=== PATIENT | male | born 1945 | race Caucasian/White ===

== ENCOUNTER 2023-08-27 17:55 | Emergency (ER) | payer MEDICARE ==
[~2023-08-27] VITALS: Ht 180.3 cm; Wt 99.1 kg
[2023-08-27 18:42] LABS: BASOPHILS % (AUTO) 1.2 % (0.0-2.0); EOSINOPHILS % (AUTO) 2.7 % (1.0-6.0); HEMATOCRIT 36.6 % (41-53); HEMOGLOBIN 12.4 g/dL (13.5-17.5); LYMPHOCYTES # (AUTO) 2.8 K/uL (1.0-4.8); LYMPHOCYTES % (AUTO) 30.5 % (22.0-44.0); MEAN CORPUSCULAR HEMOGLOBIN 31.2 pg (26.0-34.0); MEAN CORPUSCULAR VOLUME 92 fL (80-100); MONOCYTES # (AUTO) 0.7 K/uL (0.1-1.0); NEUTROPHILS # (AUTO) 5.3 K/uL (1.8-7.7); NEUTROPHILS % (AUTO) 57.6 % (40.0-70.0); PLATELET COUNT (AUTO) 295 K/uL (150-450); RED BLOOD CELL COUNT(AUTO) 3.98 MIL/uL (4.50-5.90); RED CELL DISTRIBUTION WIDTH 14.9 % (11.5-14.5); WHITE BLOOD COUNT (AUTO) 9.1 K/uL (4.5-11.0)
[2023-08-27 19:00] LABS: CALCIUM, TOTAL 10.1 mg/dL (8.8-10.5); CREATININE 1.95 mg/dL (0.60-1.30); POTASSIUM 3.9 mmol/L (3.5-5.1)
[2023-08-27 19:06] LABS: ALBUMIN 3.3 g/dL (3.4-5.0); BILIRUBIN,TOTAL 1.2 mg/dL (0.1-1.0); TOTAL PROTEIN, SERUM 6.5 g/dL (6.4-8.2)
[2023-08-27 20:27] VITALS: BP 120/52; PULSE 66; RESP 16; TEMP 97.7
== END 2023-08-27 23:01 | disposition home or self-care (01) ==
LOC: EMS 17:55
DX: E11.65 Type 2 diabetes mellitus with hyperglycemia (principal)
CPT/HCPCS: 80053; 82962; 85025; 99283

== ENCOUNTER 2023-08-28 16:17 | Inpatient (IN) | payer MEDICARE ==
[~2023-08-28] VITALS: Ht 180.3 cm; Wt 114.6 kg
[2023-08-28] MEDS: SODIUM CHLORIDE 0.9% 1,000 ML IV ONE (16:56)
[2023-08-28 17:04] LABS: BASOPHILS % (AUTO) 1.1 % (0.0-2.0); EOSINOPHILS % (AUTO) 2.6 % (1.0-6.0); HEMATOCRIT 36.3 % (41-53); HEMOGLOBIN 12.2 g/dL (13.5-17.5); LYMPHOCYTES # (AUTO) 2.7 K/uL (1.0-4.8); LYMPHOCYTES % (AUTO) 26.4 % (22.0-44.0); MEAN CORPUSCULAR HEMOGLOBIN 30.7 pg (26.0-34.0); MEAN CORPUSCULAR HGB CONC 33.5 G/dL (31.0-37.0); MEAN CORPUSCULAR VOLUME 92 fL (80-100); MONOCYTES # (AUTO) 0.7 K/uL (0.1-1.0); MONOCYTES % (AUTO) 7.2 % (2.0-9.0); NEUTROPHILS # (AUTO) 6.3 K/uL (1.8-7.7); NEUTROPHILS % (AUTO) 62.7 % (40.0-70.0); PLATELET COUNT (AUTO) 322 K/uL (150-450); RED BLOOD CELL COUNT(AUTO) 3.96 MIL/uL (4.50-5.90); RED CELL DISTRIBUTION WIDTH 14.8 % (11.5-14.5); WHITE BLOOD COUNT (AUTO) 10.1 K/uL (4.5-11.0)
[2023-08-28 17:14] LABS: ANION GAP 9 mmol/L (8-16); CALCIUM, TOTAL 9.7 mg/dL (8.8-10.5); CARBON DIOXIDE 32 mmol/L (22-29); CHLORIDE 94 mmol/L (98-107); CREATININE 1.95 mg/dL (0.60-1.30); GLOMERULAR FILTR. RATE CALC 34 mL/min (>60); GLUCOSE,RANDOM 275 mg/dL (70-110); POTASSIUM 3.7 mmol/L (3.5-5.1); SODIUM SERUM 135 mmol/L (136-145); UREA NITROGEN, BLOOD 41 mg/dL (7-18)
[2023-08-28 17:20] LABS: ACETONE,BLOOD NEGATIVE (NEGATIVE); LACTIC ACID 1.9 mmol/L (0.4-2.0); TROPONIN I-HIGH SENSITIVITY 30 ng/L (<76)
[2023-08-28 17:21] LABS: B-TYPE NATRIURETIC PEPTIDE 76 pg/mL (0-100)
[2023-08-28 17:28] LABS: ALANINE AMINOTRANSFERASE 47 U/L (12-78); ALBUMIN 3.3 g/dL (3.4-5.0); ALKALINE PHOSPHATASE 110 U/L (46-116); ASPARTATE AMINOTRANSFERASE 36 U/L (15-37); BILIRUBIN,TOTAL 1.5 mg/dL (0.1-1.0); FREE T4 (FREE THYROXINE) 0.39 ng/dL (0.76-1.46); T4 (THYROXINE) 6.1 mcg/dL (4.7-13.3); THYROID STIMULATING HORMONE 83.56 uIU/mL (0.36-3.74); TOTAL PROTEIN, SERUM 6.5 g/dL (6.4-8.2)
[2023-08-28] MEDS ORDERED: 0.9% SODIUM CHLORIDE 10 ML SYRINGE IVP PRN (18:00)
[2023-08-28] MEDS ORDERED: ACETAMINOPHEN 325 MG TABLET PO PRN ×2 (18:00→22:00)
[2023-08-28] MEDS ORDERED: ONDANSETRON HCL 4 MG/2 ML VIAL IVP PRN ×2 (18:00→22:00)
[2023-08-28 18:06] LABS: COVID AG,FIA SOURCE NASAL SWAB
[2023-08-28 18:22] LABS: SARS-COV2 (COVID) ANTIGEN,FIA Negative (Negative)
[2023-08-28 20:31] LABS: GLUCOMETER DEV NAME(LOC) ERT.5; GLUCOSE,POINT OF CARE 318 MG/DL (70-110)
[2023-08-28 20:58] LABS: APPEARANCE,URINE CLEAR (CLEAR); BILIRUBIN,URINE NEGATIVE (NEGATIVE); COLOR,URINE LIGHT YELLOW (YELLOW); GLUCOSE, URINE (UA) >=1000 mg/dL (NEGATIVE); KETONES,URINE NEGATIVE (NEGATIVE); LEUKOCYTE ESTERASE ,URINE NEGATIVE (NEGATIVE); NITRATE,URINE NEGATIVE (NEGATIVE); OCCULT BLOOD,URINE TRACE (NEGATIVE); PROTEIN,URINE 100-200,SEE CONFIRM mg/dL (NEGATIVE); SPECIFIC GRAVITIY, URINE 1.009 (1.003-1.030); UROBILINOGEN,URINE <=1.0 mg/dL (<=1.0)
[2023-08-28 21:09] VITALS: BP 105/71; PULSE 69; RESP 18; TEMP 98.2
[2023-08-28 21:28] LABS: SULFOSALICYLIC ACID,URINE 4+ (Negative)
[2023-08-28 21:29] LABS: BACTERIA,URINE None Seen /HPF (None Seen); RBC,URINE None Seen /HPF (0-2); WBC,URINE 0-2 /HPF (0-5)
[2023-08-28] MEDS ORDERED: DEXTROSE 50%-WATER 25 GM/50 ML SYRINGE IVP PRN (22:00)
[2023-08-28] MEDS: SODIUM CHLORIDE 0.9% 1,000 ML IV SCH (22:49)
[2023-08-28] MEDS: INSULIN GLARGINE,HUM.REC.ANLOG 100 UNITS/ML SQ SCH (22:51)
[2023-08-28] MEDS: INSULIN LISPRO 100 UNITS/ML SQ PRN (22:51)
[2023-08-29 01:48] VITALS: BP 144/69; PULSE 60; RESP 18; TEMP 97.7
[2023-08-29] MEDS: LEVOTHYROXINE SODIUM 75 MCG TABLET PO SCH (06:00)
[2023-08-29 06:53] VITALS: BP 138/88; PULSE 60; RESP 18; TEMP 97.8
[2023-08-29 07:52] LABS: BASOPHILS % (AUTO) 0.6 % (0.0-2.0); EOSINOPHILS % (AUTO) 3.2 % (1.0-6.0); HEMATOCRIT 32.6 % (41-53); HEMOGLOBIN 11.3 g/dL (13.5-17.5); LYMPHOCYTES # (AUTO) 2.7 K/uL (1.0-4.8); LYMPHOCYTES % (AUTO) 34.7 % (22.0-44.0); MEAN CORPUSCULAR HEMOGLOBIN 31.7 pg (26.0-34.0); MEAN CORPUSCULAR HGB CONC 34.6 G/dL (31.0-37.0); MEAN CORPUSCULAR VOLUME 92 fL (80-100); MONOCYTES # (AUTO) 0.7 K/uL (0.1-1.0); MONOCYTES % (AUTO) 9.3 % (2.0-9.0); NEUTROPHILS % (AUTO) 52.2 % (40.0-70.0); PLATELET COUNT (AUTO) 249 K/uL (150-450); RED BLOOD CELL COUNT(AUTO) 3.57 MIL/uL (4.50-5.90); RED CELL DISTRIBUTION WIDTH 14.7 % (11.5-14.5); WHITE BLOOD COUNT (AUTO) 7.7 K/uL (4.5-11.0)
[2023-08-29 08:13] LABS: ALBUMIN 2.8 g/dL (3.4-5.0); BILIRUBIN,TOTAL 1.2 mg/dL (0.1-1.0); CALCIUM, TOTAL 8.6 mg/dL (8.8-10.5); CHOL/HDL RATIO 2.6 (4.2-7.3); CREATININE 1.61 mg/dL (0.60-1.30); MAGNESIUM 1.7 mg/dL (1.80-2.40); POTASSIUM 3.1 mmol/L (3.5-5.1); TOTAL PROTEIN, SERUM 5.5 g/dL (6.4-8.2)
[2023-08-29] MEDS: ENOXAPARIN SODIUM 40 MG/0.4 ML PF SYRINGE SQ SCH (08:38)
[2023-08-29 09:20] VITALS: BP 130/77; PULSE 61; RESP 19; TEMP 98
[2023-08-29] MEDS: POTASSIUM CHLORIDE 20 MEQ ER TABLET PO ONE (10:36)
[2023-08-29 13:20] VITALS: BP 147/78; PULSE 60; RESP 18; TEMP 98.1
[2023-08-29 16:39] VITALS: BP 146/77; PULSE 66; RESP 19; TEMP 98.1
[2023-08-29 17:57] LABS: GLUCOMETER DEV NAME(LOC) 5N.2C; GLUCOSE,POINT OF CARE 171 MG/DL (70-110)
[2023-08-29 20:10] VITALS: BP 160/78; PULSE 65; RESP 20; TEMP 97.9
[2023-08-29] MEDS: INSULIN GLARGINE,HUM.REC.ANLOG 100 UNITS/ML SQ SCH (20:48)
[2023-08-30] VITALS: BP 150/74; PULSE 62; RESP 20; TEMP 97.7
[2023-08-30 04:00] VITALS: BP 143/70; PULSE 70; RESP 18; TEMP 97.7
[2023-08-30 07:04] LABS: CALCIUM, TOTAL 8.9 mg/dL (8.8-10.5); CREATININE 1.22 mg/dL (0.60-1.30); MAGNESIUM 1.9 mg/dL (1.80-2.40); POTASSIUM 3.6 mmol/L (3.5-5.1)
[2023-08-30 07:34] VITALS: BP 169/85; PULSE 66; RESP 19; TEMP 97.9
[2023-08-30 11:22] VITALS: BP 145/78; PULSE 69; RESP 18; TEMP 97.8
[2023-08-30] MEDS: LISINOPRIL 10 MG TABLET PO SCH (14:42)
[2023-08-30 15:32] VITALS: BP 149/77; PULSE 63; RESP 18; TEMP 98
[2023-08-30] MEDS: INSULIN GLARGINE,HUM.REC.ANLOG 100 UNITS/ML SQ SCH (20:31)
[2023-08-30 21:12] VITALS: BP 156/88; PULSE 62; RESP 18; TEMP 97.5
[2023-08-31 02:00] VITALS: BP 192/82; PULSE 72; RESP 20; TEMP 98
[2023-08-31 03:35] VITALS: BP 153/85; PULSE 69; RESP 20; TEMP 97.8
[2023-08-31 07:09] LABS: EOSINOPHILS % (AUTO) 3.6 % (1.0-6.0); HEMATOCRIT 34.7 % (41-53); HEMOGLOBIN 11.8 g/dL (13.5-17.5); LYMPHOCYTES # (AUTO) 2.1 K/uL (1.0-4.8); LYMPHOCYTES % (AUTO) 29.9 % (22.0-44.0); MEAN CORPUSCULAR HEMOGLOBIN 31.4 pg (26.0-34.0); MEAN CORPUSCULAR VOLUME 92 fL (80-100); MONOCYTES # (AUTO) 0.6 K/uL (0.1-1.0); MONOCYTES % (AUTO) 8.1 % (2.0-9.0); NEUTROPHILS # (AUTO) 4.1 K/uL (1.8-7.7); NEUTROPHILS % (AUTO) 57.4 % (40.0-70.0); PLATELET COUNT (AUTO) 259 K/uL (150-450); RED BLOOD CELL COUNT(AUTO) 3.76 MIL/uL (4.50-5.90); RED CELL DISTRIBUTION WIDTH 14.9 % (11.5-14.5); WHITE BLOOD COUNT (AUTO) 7.1 K/uL (4.5-11.0)
[2023-08-31 07:15] VITALS: BP 176/98; PULSE 70; RESP 18; TEMP 98
[2023-08-31 07:16] LABS: CALCIUM, TOTAL 8.8 mg/dL (8.8-10.5); CREATININE 1.18 mg/dL (0.60-1.30); POTASSIUM 3.5 mmol/L (3.5-5.1)
[2023-08-31 11:11] VITALS: BP 163/88; PULSE 72; RESP 18; TEMP 98.2
[2023-09-03 00:09] LABS: GLUCOMETER DEV NAME(LOC) 5S.2C; GLUCOSE,POINT OF CARE 229 MG/DL (70-110)
[2023-09-03 00:09] LABS: GLUCOMETER DEV NAME(LOC) 5S.2C; GLUCOSE,POINT OF CARE 326 MG/DL (70-110)
[2023-09-03 00:09] LABS: GLUCOMETER DEV NAME(LOC) 5S.2C; GLUCOSE,POINT OF CARE 289 MG/DL (70-110)
[2023-09-03 00:10] LABS: GLUCOMETER DEV NAME(LOC) 5S.2C; GLUCOSE,POINT OF CARE 273 MG/DL (70-110)
[2023-09-03 00:10] LABS: GLUCOMETER DEV NAME(LOC) 5S.2C; GLUCOSE,POINT OF CARE 127 MG/DL (70-110)
[2023-09-03 00:10] LABS: GLUCOMETER DEV NAME(LOC) 5S.2C; GLUCOSE,POINT OF CARE 173 MG/DL (70-110)
[2023-09-03 00:11] LABS: GLUCOMETER DEV NAME(LOC) 5S.2C; GLUCOSE,POINT OF CARE 287 MG/DL (70-110)
[2023-09-03 00:11] LABS: GLUCOMETER DEV NAME(LOC) 5S.2C; GLUCOSE,POINT OF CARE 238 MG/DL (70-110)
== END 2023-08-31 13:40 | DRG 637 ==
LOC: EMS 16:24 → 5S 19:31
PROVIDERS: ADMIT Family Medicine; ATTEND Family Medicine
DX: E11.65 Type 2 diabetes mellitus with hyperglycemia (principal); N17.0 Acute kidney failure with tubular necrosis; E03.9 Hypothyroidism, unspecified; Z20.822 Contact with and (suspected) exposure to COVID-19; Z68.32 Body mass index [BMI] 32.0-32.9, adult; E66.01 Morbid (severe) obesity due to excess calories; Z88.1 Allergy status to other antibiotic agents
CPT/HCPCS: 71045; 80048; 80053; 80061; 81001; 81002; 82009; 82962; 83036; 83605; 83735; 83880; 84132; 84436; 84439; 84443; 84481; 84484; 85025; 87040; 93005; 99285; J1650; J1815; J7030; 36415-L1; 36415-TC